=== PATIENT | male | born 2000 | race Asian ===

== ENCOUNTER 2019-03-19 12:53 | Emergency (ER) | payer OTHER ==
[~2019-03-19] VITALS: Ht 190.5 cm; Wt 88.5 kg
[~2019-03-19 12:53] MED LIST: CEPH250A PO; CODGUAEL PO; CYCL10 PO; Cleocin HCl300 MG PO; Ery-Tab250 MG PO; IBUP600 PO; IBUP800 PO; MUPI2TC TOP; MUPI2TO TOP; Naprosyn500 MG PO; Norco 5-325 Ta1 EACH PO; OXYACE5T PO; SULTRIDS PO; SULTRISS PO
[2019-03-19] MEDS ORDERED: NAPR550 PO (13:41)
[2019-03-19] MEDS ORDERED: Capsaicin60 GM TOP (13:41)
[2019-03-19] MEDS ORDERED: Robaxin500 MG PO (13:41)
== END 2019-03-19 14:38 | disposition home or self-care (01) ==
LOC: ER 12:53
DX: M54.5 Low back pain (principal); Z88.2 Allergy status to sulfonamides
CPT/HCPCS: 72100; 99283-25

== ENCOUNTER 2020-01-14 10:24 | Emergency (ER) | payer BC ==
[~2020-01-14] VITALS: Ht 190.5 cm; Wt 86.2 kg
[~2020-01-14 10:24] MED LIST changes: +Capsaicin60 GM TOP; +NAPR550 PO; +Robaxin500 MG PO
[2020-01-14] MEDS ORDERED: Norco 7.5-3251 EACH PO (11:42)
[2020-01-14] MEDS ORDERED: IBUP800 PO (11:42)
== END 2020-01-14 12:23 | disposition home or self-care (01) ==
LOC: ER 10:24
DX: M24.411 Recurrent dislocation, right shoulder (principal); Z88.2 Allergy status to sulfonamides
CPT/HCPCS: 23655; 73020; 96374-59; 99283-25; J1885; J2704; J7030

== ENCOUNTER 2020-02-27 13:27 | Day surgery (SDC) | payer OTHER, BC ==
[~2020-02-27 13:27] MED LIST changes: +Norco 7.5-3251 EACH PO
== END 2020-02-27 23:06 | disposition home or self-care (01) ==
LOC: MOI RAD 13:27 → MOI MRI 15:00 → MOI RAD 23:06 → RAD 03-19 09:00 → MOI RAD 03-19 09:00 → MRI 03-19 10:00
DX: M25.511 Pain in right shoulder (principal)
CPT/HCPCS: 20610; 73222; 77002; A9577; Q9967